=== PATIENT | female | born 1970 | race Two or more races ===

== ENCOUNTER 2016-03-16 23:59 | Emergency (ER) | payer SELFPAY ==
[2016-03-17] MEDS ORDERED: ONDANSETRON 4 MG/2 ML VIAL IVP ONE (00:46)
[2016-03-17] MEDS ORDERED: NS 500 ML IV ONE (00:46)
--- NOTE | 2016-03-17 00:51 | EDPHY ---
H & P Stated Complaint: High BP Time Seen by Provider: 03/17/16 00:37 HPI/ROS: CHIEF COMPLAINT: High blood pressure HISTORY OF PRESENT ILLNESS: Patient is a 45-year-old female who comes to the emergency department the family complaining of high blood pressure. She states that she was lying in bed and felt uncomfortable. She felt slightly nauseous in her throat and upper chest region. She denies pain or shortness of breath. She took a half dose of her 's beta-debbie which helped with her symptoms. Highest blood pressure she saw was 180/105. Currently in the emergency department is 170/100. REVIEW OF SYSTEMS: Constitutional: denies: chills, fever, recent illness, recent injury EENTM: denies: blurred vision, double vision, nose congestion Respiratory: denies: cough, shortness of breath Cardiac: See HPI, denies: chest pain, irregular heart rate, lightheadedness, palpitations Gastrointestinal/Abdominal: denies: abdominal pain, diarrhea, nausea, vomiting, blood streaked stools Genitourinary: denies: dysuria, frequency, hematuria, pain Musculoskeletal: denies: joint pain, muscle pain Skin: denies: lesions, rash, jaundice, bruising Neurological: denies: headache, numbness, paresthesia, tingling, dizziness, weakness Hematologic/Lymphatic: denies: blood clots, easy bleeding, easy bruising Immunologic/allergic: denies: HIV/AIDS, transplant EXAM: GENERAL: Well-appearing, well-nourished and in no acute distress. HEAD: Atraumatic, normocephalic. EYES: Pupils equal round and reactive to light, extraocular movements intact, sclera anicteric, conjunctiva are normal. ENT: TMs normal, nares patent, oropharynx clear without exudates. Moist mucous membranes. NECK: Normal range of motion, supple without lymphadenopathy or JVD. LUNGS: Breath sounds clear to auscultation bilaterally and equal. No wheezes rales or rhonchi. HEART: Regular rate and rhythm without murmurs, rubs or gallops. ABDOMEN: Soft, nontender, normoactive bowel sounds. No guarding, no rebound. No masses appreciated. BACK: No CVA tenderness, no spinal tenderness, step-offs or deformities EXTREMITIES: Normal range of motion, no pitting or edema. No clubbing or cyanosis. NEUROLOGICAL: Cranial nerves II through XII grossly intact. Normal speech, normal gait. 5/5 strength, normal movement in all extremities, normal sensation PSYCH: Normal mood, normal affect. SKIN: Warm, dry, normal turgor, no visible rashes or lesions. Source: Patient Exam Limitations: No limitations - Personal History LMP (Females 10-55): Irregular Current Tetanus Diphtheria and Acellular Pertussis (TDAP): Yes - Medical/Surgical History Hx Asthma: No Hx Chronic Respiratory Disease: No Hx Diabetes: Yes Hx Cardiac Disease: No Hx Renal Disease: No Hx Cirrhosis: No Hx Alcoholism: No Hx HIV/AIDS: No Hx Splenectomy or Spleen Trauma: No Other PMH: High Cholesterol, DM2 - Family History Significant Family History: No pertinent family hx - Social History Smoking Status: Never smoked Alcohol Use: Sober Drug Use: None Constitutional: Initial Vital Signs Temperature (C) 36.6 C 03/17/16 00:05 Heart Rate 91 03/17/16 00:05 Respiratory Rate 16 03/17/16 00:05 Blood Pressure 169/95 H 03/17/16 00:05 O2 Sat (%) 94 03/17/16 00:05 O2 Delivery Mode Room Air Allergies/Adverse Reactions: diclofenac Allergy (Verified 03/17/16 00:04) Home Medications: Medication Instructions Recorded Metoprolol Succinate 25 mg PO DAILY #20 tab.er.24h 03/17/16 metFORMIN HCL 03/17/16 Medical Decision Making - Diagnostics EKG Interpretation: An EKG obtained and was read and documented in trace view. Please see trace view for full reading and report. Sinus rhythm, no acute ischemic changes Imaging: X-ray: chest x-ray was obtained. I viewed the images myself on the PACS system. My interpretation of the images is: negative for acute disease . The radiologist interpretation is pending. ED Course/Re-evaluation: I discussed the lab and imaging results with the patient and her family. She feels relieved and is eager to go home. They declined any further workup or testing. I recommended she monitor her blood pressure and speak with her doctor back in [place] about control. I will write her a small prescription to take if needed. She is happy with this plan. She understands that I cannot completely rule out cardiac disease at this point. She is concerned about cost. I spoke with her family about patient telemarketing sales representative and billing contacting them to discuss options. They are also requesting copy of the labs and EKG did take media. Differential Diagnosis: Partial list of the Differential diagnosis considered include but were not limited to; acute coronary disease, hypertension, anxiety and although unlikely based on the history and physical exam, I also considered gastroenteritis, PE, pneumonia, dissection. I discussed these differential diagnoses and the plan with the patient as well as the usual and expected course. The patient understands that the diagnosis is provisional and that in medicine we are not always correct and that further workup is often warranted. Usual and customary warnings were given. All of the patient's questions were answered. The patient was instructed to return to the emergency department should the symptoms at all worsen or return, otherwise to followup with the physician as we discussed. - Data Points Laboratory Results: Laboratory Results 03/17/16 01:05 03/17/16 01:05 03/17/16 01:05 WBC 10.30 H 10^3/uL (3.80-9.50) RBC 4.83 10^6/uL (4.18-5.33) Hgb 13.3 g/dL (12.6-16.3) Hct 39.7 % (38.0-47.0) MCV 82.2 fL (81.5-99.8) MCH 27.5 L pg (27.9-34.1) MCHC 33.5 g/dL (32.4-36.7) RDW 13.1 % (11.5-15.2) Plt Count 272 10^3/uL (150-400) MPV 10.8 fL (8.7-11.7) Neut % (Auto) 69.5 % (39.3-74.2) Lymph % (Auto) 20.8 % (15.0-45.0) [place] % (Auto) 5.6 % (4.5-13.0) Eos % (Auto) 3.4 % (0.6-7.6) Baso % (Auto) 0.4 % (0.3-1.7) Nucleat RBC Rel Count 0.0 % (0.0-0.2) Absolute Neuts (auto) 7.16 H 10^3/uL (1.70-6.50) Absolute Lymphs (auto) 2.14 10^3/uL (1.00-3.00) Absolute Monos (auto) 0.58 10^3/uL (0.30-0.80) Absolute Eos (auto) 0.35 10^3/uL (0.03-0.40) Absolute Basos (auto) 0.04 10^3/uL (0.02-0.10) Absolute Nucleated RBC 0.00 10^3/uL (0-0.01) Immature Gran % 0.3 % (0.0-1.1) Immature Gran # 0.03 10^3/uL (0.00-0.10) D-Dimer 0.28 ug/mLFEU (0.00-0.50) Sodium 142 mEq/L (134-144) Potassium 4.0 mEq/L (3.5-5.2) Chloride 105 mEq/L (97-110) Carbon Dioxide 25 mEq/l (22-31) Anion Gap 12 mEq/L (8-16) BUN 9 mg/dL (7-23) Creatinine 0.5 L mg/dL (0.6-1.0) Estimated GFR > 60 Glucose 155 H mg/dL (70-100) Calcium 10.2 mg/dL (8.5-10.4) Total Bilirubin 0.5 mg/dL (0.1-1.4) Conjugated Bilirubin 0.3 mg/dL (0.0-0.5) Unconjugated Bilirubin 0.2 mg/dL (0.0-1.1) AST 47 H IU/L (14-46) ALT 85 H IU/L (9-52) Alkaline Phosphatase 111 IU/L (38-126) Troponin I < 0.012 ng/mL (0-0.034) Total Protein 7.5 g/dL (6.3-8.2) Albumin 4.1 g/dL (3.5-5.0) Lipase 132.0 IU/L (23-300) Medications Given: Discontinued Medications Sodium Chloride (Ns) 500 mls @ 0 mls/hr IV ONCE ONE PRN Reason: As Directed Stop: 03/17/16 00:47 Last Admin: 03/17/16 01:09 Dose: 500 mls Ondansetron HCl (Zofran) 4 mg IVP EDNOW ONE Stop: 03/17/16 00:47 Last Admin: 03/17/16 01:09 Dose: 4 mg Departure - Departure Disposition: Home, Routine, Self-Care Clinical Impression: Hypertension Qualifiers: Hypertension type: essential hypertension Qualifier Code: (I10) Essential ( primary) hypertension Condition: Good Instructions: Hypertension (ED) Referrals: NONE *PRIMARY CARE P,. [Primary Care Provider] - As per Instructions Prescriptions: Metoprolol Succinate 25 mg PO DAILY #20 tab.er.24h
--- NOTE | 2016-03-17 00:59 | CPEKG ---
Heart Rate: 79 RR Interval: 759 P-R Interval: 152 QRSD Interval: 76 QT Interval: 380 QTC Interval: 436 P [place]: 31 QRS [place]: 17 T Wave [place]: 21 EKG Severity - NORMAL ECG - EKG Impression: SINUS RHYTHM Electronically Signed By: Mika Padron 17-Mar-2016 01:06:57
[2016-03-17 01:20] LABS: % IMMATURE GRANULYOCYTES 0.3 % (0.0-1.1); ABSOLUTE IMMATURE GRANULOCYTES 0.03 10^3/uL (0.00-0.10); ADD DIFF? NO; ADD MORPH? NO; ADD SCAN? NO; ATYPICAL LYMPHOCYTE FLAG 10 (0-99); FRAGMENT RBC FLAG 0 (0-99); HEMATOCRIT 39.7 % (38.0-47.0); HEMOGLOBIN 13.3 g/dL (12.6-16.3); LEFT SHIFT FLG 0 (0-99); LIPEMIA HEMOLYSIS FLAG 80 (0-99); MEAN CELL HEMOGLOBIN 27.5 pg (27.9-34.1); MEAN CELL HEMOGLOBIN CONCENTR. 33.5 g/dL (32.4-36.7); MEAN CELL VOLUME 82.2 fL (81.5-99.8); MEAN PLATELET VOLUME 10.8 fL (8.7-11.7); PLATELET CLUMPS FLAG 0 (0-99); PLATELET COUNT 272 10^3/uL (150-400); RED BLOOD CELL COUNT 4.83 10^6/uL (4.18-5.33); RED CELL DISTRIBUTION WIDTH 13.1 % (11.5-15.2)
[2016-03-17 01:33] LABS: ALANINE AMINOTRANSFERASE 85 IU/L (9-52); ALBUMIN 4.1 g/dL (3.5-5.0); ALKALINE PHOSPHATASE 111 IU/L (38-126); ANION GAP 12 mEq/L (8-16); ASPARTATE AMINOTRANSFERASE 47 IU/L (14-46); BILIRUBIN,TOTAL 0.5 mg/dL (0.1-1.4); BILIRUBIN-CONJUGATED 0.3 mg/dL (0.0-0.5); BILIRUBIN-UNCONJUGATED 0.2 mg/dL (0.0-1.1); CALCIUM 10.2 mg/dL (8.5-10.4); CARBON DIOXIDE 25 mEq/l (22-31); CHLORIDE 105 mEq/L (97-110); CREATININE 0.5 mg/dL (0.6-1.0); GLOMERULAR FILTRATION RATE > 60; GLUCOSE 155 mg/dL (70-100); SODIUM 142 mEq/L (134-144); TOTAL PROTEIN 7.5 g/dL (6.3-8.2)
[2016-03-17 01:48] VITALS: O2SAT 93
[2016-03-17 01:53] LABS: TROPONIN I < 0.012 ng/mL (0-0.034)
[2016-03-17 02:37] VITALS: BP 154/79; PULSE 80; RESP 16; TEMP 98.6
--- NOTE | 2016-03-17 07:53 | DX ---
PA and lateral chest History: Chest pain. Comparison: None available. Findings: The lungs are clear. There is no pneumothorax or pleural effusion. Heart size is upper no rmal, likely exaggerated by low lung volumes.. Degenerative changes are present in the spine. Impression: Borderline cardiomegaly with no acute findings.
== END 2016-03-17 02:37 | disposition home or self-care (01) ==
DX: I10 Essential (primary) hypertension (principal); E11.9 Type 2 diabetes mellitus without complications
CPT/HCPCS: 96374; J2405